=== PATIENT | female | born 1950 ===

== ENCOUNTER 2022-09-02 10:44 | Outpatient (REF) | payer OTHER, SELFPAY ==
[2022-09-02 11:33] LABS: Influenza Type A POSITIVE (Negative); Influenza Type B Negative (Negative)
== END 2022-09-02 10:45 | disposition home or self-care (01) ==
LOC: NPINS 10:44
PROVIDERS: PCP Family Medicine; Visit Provider Nurse Practitioner Adult Health
DX: J10.1 Influenza due to other identified influenza virus with other respiratory manifestations (principal)
CPT/HCPCS: 87804